=== PATIENT | female | born 1990 | race Caucasian/White ===

== ENCOUNTER → 2016-04-05 | Outpatient (CLI) | payer BC ==
[~2016-04-05] MED LIST: CLC100 PO; DROSPIRENONE PO; ETHINYL ESTRADIOL PO; FRRS300 PO; MTR600X PO; MYL80 PO; OXYC-57 PO; PHEN-876 PO; PRENTAB26 PO; SULF800T23 PO
[2016-04-05 17:35] LABS: HEMATOCRIT 31.9 % (37-47)
[2016-04-05 18:02] LABS: GTGD 50 Grams
[2016-04-05 18:54] LABS: URINE APPEARANCE CLOUDY (CLEAR); URINE BILIRUBIN NEG (NEG); URINE COLOR YELLOW; URINE EPITHELIAL CELL AUTO >30 /lpf (0-5); URINE NITRITE NEG (NEG); URINE SPECIFIC GRAVITY 1.022 (1.000-1.030); UROBILINOGEN NEG (NEG)
[2016-04-05 19:04] LABS: MANUAL MICROSCOPIC REQUIRED? NO; REVIEW REQ? YES
== END | disposition home or self-care (01) ==
LOC: C.LAB1850 16:06
PROVIDERS: ATTEND Obstetrics & Gynecology
DX: Z34.02 Encounter for supervision of normal first pregnancy, second trimester (principal)

== ENCOUNTER → 2016-06-04 | Outpatient (CLI) | payer BC | END | disposition home or self-care (01) | LOC: C.LABSPEC 16:20 | PROVIDERS: ATTEND Obstetrics & Gynecology | DX: Z34.03 Encounter for supervision of normal first pregnancy, third trimester (principal) ==

== ENCOUNTER 2016-06-27 00:14 | Inpatient (IN) | payer BC ==
[~2016-06-27] VITALS: Ht 160 cm; Wt 71.0 kg
[2016-07-02] MEDS ORDERED: PRENTAB26 PO (18:35)
[2016-07-03 07:52] VITALS: Ht 160 cm; Wt 71.0 kg
[2016-07-03] MEDS ORDERED: LACTATED RINGER'S 1000ML 500 ML IV PRN ×2 (08:10→11:01)
[2016-07-03] MEDS ORDERED: LACTATED RINGER'S 1000ML 1,000 ML IV PRN (08:10)
[2016-07-03] MEDS ORDERED: OXYTOCIN 30 UNITS/500ML NSS IV PRN (08:15)
[2016-07-03 08:44] LABS: HEMATOCRIT 32.7 % (37-47); MEAN CELL VOLUME 87.2 fL (80-100); MEAN CORPUSCULAR HEMOGLOBIN 28.3 pg (25-34); MEAN CORPUSCULAR HGB CONC 32.4 g/dl (32-36); MEAN PLATELET VOLUME 11.7 fL (7.4-10.4); PLATELET COUNT 233 K/uL (130-400); RED BLOOD COUNT 3.75 M/uL (4.2-5.4)
[2016-07-03] MEDS: LACTATED RINGER'S 1000ML 1,000 ML IV SCH ×3 (08:49→16:34)
[2016-07-03] MEDS ORDERED: NURSING VERBAL MED ORDER ONE (10:45)
[2016-07-03] MEDS: ACETAMINOPHEN 325 MG TAB PO PRN ×2 (10:54→16:49)
[2016-07-03] MEDS ORDERED: ACETAMINOPHEN 325 MG TAB PO PRN (11:00)
[2016-07-03] MEDS ORDERED: NALOXONE HCL INJ 1 MG in SODIUM CHLORIDE 0.9% 1000ML 1,000 ML IV PRN (11:01)
[2016-07-03] MEDS ORDERED: FENTANYL CITRATE INJ 50 MCG/1 ML 2 ML VIAL ONE ×2 (11:06→20:41)
[2016-07-03] MEDS ORDERED: BUPIVACAINE 0.25% 30 ML VIAL ONE (11:06)
[2016-07-03] MEDS ORDERED: FENTANYL 2MCG/ML ROPIV 1.25MG/ML 100ML BAG EPI ONE (11:06)
[2016-07-03] MEDS ORDERED: EpHEDrine SULFATE INJ 50 MG/ML AMP ONE (11:06)
[2016-07-03] MEDS ORDERED: ONDANSETRON INJ 2 MG/ML 2 ML VIAL IV PRN (11:15)
[2016-07-03] MEDS ORDERED: DiphenhydrAMINE HCL 50 MG/ML VIAL IV PRN (11:15)
[2016-07-03] MEDS ORDERED: NALBUPHINE HCL INJ 10 MG/ML AMP IV PRN (11:15)
[2016-07-03] MEDS ORDERED: FENTANYL 2MCG/ML ROPIV 1.25MG/ML 100ML BAG EPI PRN (11:15)
[2016-07-03] MEDS ORDERED: EpHEDrine SULFATE INJ 50 MG/ML AMP IV PRN (11:15)
[2016-07-03] MEDS ORDERED: NALOXONE HCL INJ 0.4 MG/1 ML VIAL/CARP IV PRN (11:15)
[2016-07-03] MEDS: FENTANYL 2MCG/ML ROPIV 1.25MG/ML 100ML BAG EPI PRN ×2 (16:53→18:57)
[2016-07-03] MEDS ORDERED: AMPICILLIN/SULBACTAM SOD INJ 3,000 MG in SODIUM CHLORIDE 0.9% 100ML 100 ML IV ONE (18:30)
[2016-07-03] MEDS ORDERED: LACTATED RINGER'S 1000ML 1,000 ML IV ONE (20:01)
[2016-07-03] MEDS ORDERED: LIDOCAINE/EPINEPHRINE 2% 1:200,000 20 ML SDV ONE ×2 (20:12→20:45)
[2016-07-03] MEDS ORDERED: OXYTOCIN INJ 10 UNITS/ML VIAL ONE (20:12)
[2016-07-03] MEDS ORDERED: CEFAZOLIN IV 2,000 MG in DEXTROSE 5% 50ML 50 ML IV SCH (20:15)
[2016-07-03] MEDS ORDERED: CITRIC ACID/SODIUM CITRATE 15 ML UDC PO ONE (20:15)
[2016-07-03] MEDS ORDERED: MoRPHine SULFATE PF 1 MG/ML 10 ML AMP/VIAL ONE (20:31)
[2016-07-03] MEDS ORDERED: MIDAZOLAM HCL 1 MG/ML 2ML VIAL ONE (20:42)
[2016-07-03] MEDS ORDERED: METHYLERGONOVINE MALEATE 0.2 MG/ML AMP ONE (20:45)
[2016-07-03] MEDS ORDERED: ONDANSETRON INJ 2 MG/ML 2 ML VIAL ONE (20:52)
[2016-07-03] MEDS ORDERED: CARBOPROST TROMETHAMINE 250 MCG/ML AMP ONE (20:52)
[2016-07-03] MEDS ORDERED: NO NARCOTICS OR SEDATIVES SCH (21:00)
[2016-07-03] MEDS ORDERED: MoRPHine SULFATE PF 1 MG/ML 10 ML AMP/VIAL EPI PRN (21:00)
[2016-07-03] MEDS ORDERED: CONTINUE MEDICATION ONE (21:00)
[2016-07-03] MEDS ORDERED: MoRPHine SULFATE 2 MG/ML CARP IV PRN (21:00)
[2016-07-03] MEDS ORDERED: DC INTRASPINAL MORPHINE PRN (21:00)
--- NOTE | 2016-07-03 21:05 | HISTORY & PHYSICAL EXAMINATION ---
DATE OF ADMISSION: 07/03/2016 PREOPERATIVE DIAGNOSIS: Failure to progress. HISTORY OF PRESENT ILLNESS: This is a 26-year-old G1, P0, who presented for an induction of labor at 40 weeks and 6/7. Induction progressed smoothly until the patient was in the second stage of labor. She pushed for 3 hours and unfortunately was unable to effect delivery of the head. Additionally, she experienced significant labial and vaginal edema. Exam showed the fetus to be in a persistently asynclitic and at least partially transverse presentation. So, the patient was unable to effect delivery of the head. On exam, I did not feel that the head was amenable to operative vaginal delivery as it was abnormally oriented and easily disengaged even after this long of pushing. The patient was counseled on the need for delivery which she accepts. She was counseled at the bedside on the risks and benefits, and she and her both gave consent to proceed. ALLERGIES: PSEUDOEPHEDRINE. MEDICATIONS: Prenatals. PAST MEDICAL HISTORY: Medullary sponge kidneys, history of umbilical hernia, migraines, varicella, and ovarian cysts. SURGICAL HISTORY: Ewing teeth, adenoidectomy. SOCIAL HISTORY: Negative x3. female. OBSTETRIC HISTORY: Primigravida. CURRENT EXAMINATION: VITAL SIGNS: 125/62, pulse of 84, pulse ox 96 on room air. GENERAL: The patient is in moderate distress due to contraction pain and pressure in the buttocks. HEART AND LUNGS: Normal. ABDOMEN: Gravid. CERVIX: The patient has fully dilated cervix and head of the infant had reached the introitus but is easily disengageable upward as previously mentioned. ASSESSMENT AND PLAN: A 26-year-old G1, P0, with failure to progress in the second stage of labor, who will be moved to the operating room now for a planned primary low transverse section.
[2016-07-03] MEDS ORDERED: LACTATED RINGER'S 1000ML 1,000 ML IV SCH (21:09)
--- NOTE | 2016-07-03 21:12 | [facility] Post Operative Brief Note ---
Immediate Operative Summary Operative Date Jul 03, 2016. Pre-Operative Diagnosis 1. IUP 2. Failure to progress Post-Operative Diagnosis Same Procedure(s) Performed Primary caesarean section Delivery of live male child at [address] Mohr Buttermaker Continuous Churn Surgeon(s) Jimmie CHAUHAN Estimated Blood Loss 700cc Findings normal tubes and ovaries. Uterine atony after delivery resolved with medication Specimens Placenta-exam Cordblood Complication(s) None Disposition L&D
[2016-07-03] MEDS ORDERED: DIPHTHERIA/TETANUS/PERTUSSIS 0.5 ML SYR/VIAL IM. ONE (21:15)
[2016-07-03] MEDS ORDERED: BENZOCAINE 20% AER SPR 82.5 GM CAN EXT PRN (21:15)
[2016-07-03] MEDS ORDERED: LANOLIN OINT EXT PRN ×2 (21:15)
[2016-07-03] MEDS ORDERED: HYDROCORTISONE ACETATE 25 MG SUPP PR PRN (21:15)
[2016-07-03] MEDS ORDERED: SUPERCREAM 0.870 % 15GM JAR EXT PRN (21:15)
[2016-07-03] MEDS ORDERED: OXYTOCIN INJ 30 UNITS in LACTATED RINGER'S 1000ML 1,000 ML IV SCH (21:30)
--- NOTE | 2016-07-03 21:37 | Anesthesiology Progress Note ---
Anesthesia Post Op Note Date & Time Jul 03, 2016 at 21:36 Vital Signs Pain Intensity: 1 Notes Mental Status: alert / awake / arousable, participated in evaluation Pt Amnestic to Procedure: Yes Nausea / Vomiting: adequately controlled Pain: adequately controlled Airway Patency, RR, SpO2: stable & adequate BP & HR: stable & adequate Hydration State: stable & adequate Neuraxial Anesthesia: was administered, sensory block is resolving Anesthetic Complications: no major complications apparent
[2016-07-03] MEDS: KETOROLAC TROMETHAMINE 30 MG/ML VIAL IV. PRN (22:46)
[2016-07-04] VITALS (18 sets, daily range): BP systolic 113–124; BP diastolic 72–83; PULSE 76–101; TEMP 36.6–37; O2SAT 89–98
[2016-07-04] MEDS: MEPERIDINE HCL 25 MG/ML CARP IV PRN ×3 (00:33→09:51)
[2016-07-04] MEDS: KETOROLAC TROMETHAMINE 30 MG/ML VIAL IV. PRN ×2 (04:24→12:46)
[2016-07-04 06:10] LABS: HEMATOCRIT 28.8 % (37-47)
[2016-07-04 06:31] LABS: BASO ABS # 0.01 K/uL (0-0.2); COMPLETE YES; HEMATOCRIT 27.8 % (37-47); IG% 0.3 %; LYMPH % 5.2 %; LYMPH ABS # 1.11 K/uL (1.2-3.4); MEAN CELL VOLUME 86.6 fL (80-100); MEAN CORPUSCULAR HEMOGLOBIN 28.3 pg (25-34); MEAN CORPUSCULAR HGB CONC 32.7 g/dl (32-36); MEAN PLATELET VOLUME 11.7 fL (7.4-10.4); MONO % 5.3 %; NEUT % 89.2 %; PLATELET COUNT 192 K/uL (130-400); RED BLOOD COUNT 3.21 M/uL (4.2-5.4); WHITE BLOOD COUNT 21.52 K/uL (4.8-10.8)
--- NOTE | 2016-07-04 07:07 | Progress Note ---
Subjective Jul 04, 2016. Subjective conversation w/ patient, physical exam Ambulation: limited ambulation (due to jordan) Passing Gas: Yes Diet Tolerance: Regular Diet Lochia: Small Feeding Type: Breast Feeding Pain: complains of pain, improves with meds Comment: Overnight while she was sleeping her O2 sat drop below 90. She was put on 1.5L NC. This morning she is doing well without O2 supplement. Review of Systems Constitutional: No fever Respiratory: No shortness of breath Cardiac: No chest pain Breast: No breast lump Abdomen: + nausea, + pain, No vomiting Female : No dysuria Denies headache Objective Vital Signs Date Time Temp Pulse Resp B/P Pulse Ox O2 Delivery O2 Flow Rate FiO2 07/04/16 06:00 18 96 07/04/16 05:00 16 97 07/04/16 04:00 36.7 101 16 124/79 07/04/16 04:00 18 98 07/04/16 03:00 17 97 07/04/16 02:00 17 96 07/04/16 01:00 17 89 07/04/16 00:00 20 95 07/04/16 00:00 36.6 76 20 122/83 96 Room Air 07/04/16 00:00 Room Air Physical Exam General Appearance: WELL-APPEARING, WD/WN, NO APPARENT DISTRESS Respiratory/Chest: chest non-tender, lungs clear, normal breath sounds Cardiovascular: regular rate, rhythm Abdomen: normal bowel sounds (hyperactive), soft, + distended, + tenderness Fundus: Firm, Relation to Umbilicus (about 1cm below, because of distension it was difficult to appreciate) Incision Description: Clean, Dry & Intact Extremities: non-tender, no calf tenderness, + pedal edema Laboratory Results Last 24 Hours Test 07/03/16 08:23 07/04/16 04:35 07/04/16 05:56 White Blood Count 11.90 K/uL 21.52 K/uL Red Blood Count 3.75 M/uL 3.21 M/uL Hemoglobin 10.6 g/dL 9.4 g/dL 9.1 g/dL Hematocrit 32.7 % 28.8 % 27.8 % Mean Corpuscular Volume 87.2 fL 86.6 fL Mean Corpuscular Hemoglobin 28.3 pg 28.3 pg Mean Corpuscular Hemoglobin Concent 32.4 g/dl 32.7 g/dl RDW Standard Deviation 43.8 fL 43.7 fL RDW Coefficient of Variation 13.8 % 13.9 % Platelet Count 233 K/uL 192 K/uL Mean Platelet Volume 11.7 fL 11.7 fL Neutrophils (%) (Auto) 89.2 % Lymphocytes (%) (Auto) 5.2 % Monocytes (%) (Auto) 5.3 % Eosinophils (%) (Auto) 0.0 % Basophils (%) (Auto) 0.0 % Neutrophils # (Auto) 19.19 K/uL Lymphocytes # (Auto) 1.11 K/uL Monocytes # (Auto) 1.14 K/uL Eosinophils # (Auto) 0.00 K/uL Basophils # (Auto) 0.01 K/uL Immature Granulocyte % (Auto) 0.3 % Immature Granulocyte # (Auto) 0.07 K/uL Nucleated RBC Absolute Count (auto) 0.03 K/uL Nucleated Red Blood Cells % 0.1 % Medications Current Inpatient Medications Medications (Trade) Dose Ordered Sig/Semaj Route Start Time Stop Time Status Last Admin Dose Admin Lactated Ringer's 1,000 ml @ 125 mls/hr Q8H IV 07/03/16 08:10 07/05/16 08:09 07/03/16 16:34 125 MLS/HR Lactated Ringer's (Lr 1000ml) 1,000 ml @ 999 mls/hr Q1H1M PRN IV 07/03/16 08:10 08/02/16 08:09 Oxytocin 30 units 30 units UD PRN IV 07/03/16 08:15 08/02/16 08:14 07/03/16 08:51 30 UNITS Lactated Ringer's (Lr 1000ml) 500 ml @ 999 mls/hr Q31M PRN IV 07/03/16 08:10 08/02/16 08:09 Acetaminophen (Tylenol Tab) 650 mg Q4H PRN PO 07/03/16 11:00 08/02/16 10:59 07/03/16 16:49 650 MG Naloxone HCl 0.1 mg 0.1 mg UD PRN IV 07/03/16 11:15 07/04/16 14:45 Lactated Ringer's (Lr 1000ml) 500 ml @ 999 mls/hr Q31M PRN IV 07/03/16 11:01 07/04/16 14:45 Ephedrine Sulfate (EpHEDrine SULFATE INJ) 10 mg Q5M PRN IV 07/03/16 11:15 07/04/16 14:45 Diphenhydramine HCl (Benadryl Inj) 25 mg Q6H PRN IV 07/03/16 11:15 07/04/16 14:45 Nalbuphine HCl 5 mg 5 mg Q10M PRN IV 07/03/16 11:15 07/04/16 14:45 Naloxone HCl/ Sodium Chloride (Narcan Inj/Nss 1000ml) 1,002.5 ml @ 50 mls/hr Q20H3M PRN IV 07/03/16 11:01 07/04/16 14:45 Ondansetron HCl (Zofran Inj) 4 mg Q6H PRN IV 07/03/16 11:15 07/04/16 14:45 07/03/16 21:33 4 MG Fentanyl/ Ropivacaine (Fentanyl 2MCG/ Ml/Ropivacaine 1.25MG/ML) 100 ml PRN PRN EPI 07/03/16 13:38 07/04/16 13:37 07/03/16 18:57 100 ML Ketorolac Tromethamine (Toradol Inj) 30 mg Q6H PRN IV. 07/03/16 21:00 07/04/16 14:45 07/04/16 04:24 30 MG Meperidine HCl (Demerol Inj) 25 mg Q15M PRN IV 07/03/16 21:00 07/04/16 14:45 07/04/16 00:33 25 MG Miscellaneous Information (Dc Intraspinal Morphine) 1 ea DIRECTED PRN N/A 07/03/16 21:00 07/04/16 14:45 Miscellaneous Information (No Narcotics Or Sedatives) 1 ea UD N/A 07/03/16 21:00 07/04/16 14:45 Morphine Sulfate (Duramorph Pf Inj) TODAY PRN EPI 07/03/16 21:00 07/04/16 14:45 Morphine Sulfate 2 mg 2 mg Q6H PRN IV 07/03/16 21:00 07/04/16 14:45 Lactated Ringer's (Lr 1000ml) 1,000 ml @ 125 mls/hr Q8H IV 07/03/16 21:09 5/26/17 21:08 07/04/16 06:16 125 MLS/HR Ketorolac Tromethamine (Toradol Inj) 30 mg Q6H PRN IV. 07/04/16 14:45 07/09/16 14:44 Meperidine HCl (Demerol Inj) 50 mg Q4H PRN IV 07/04/16 14:45 07/18/16 14:44 Meperidine HCl (Demerol Inj) 75 mg Q4H PRN IV 07/04/16 14:45 07/18/16 14:44 Oxycodone/ Acetaminophen (Percocet 5-325mg Tab) 1 tab Q4H PRN PO 07/04/16 14:45 07/18/16 14:44 Oxycodone/ Acetaminophen (Percocet 5-325mg Tab) 2 tab Q4H PRN PO 07/04/16 14:45 07/18/16 14:44 Ibuprofen 600 mg 600 mg Q4H PRN PO 07/03/16 21:15 08/02/16 21:14 Promethazine HCl/ Sodium Chloride (Phenergan Inj/ Nss 50ml) 51 ml @ 204 mls/hr Q4H PRN IV 07/04/16 14:45 08/03/16 14:44 Ondansetron HCl (Zofran Inj) 4 mg Q4H PRN IV 07/04/16 14:45 08/03/16 14:44 Prenat Multivit/ Pegger Dobby Looms/Iron/Folic Ac ( Vitamin Tab) 1 tab DAILY PO 07/04/16 08:00 08/03/16 07:59 Docusate Sodium (coLACE CAP) 100 mg BID PO 07/04/16 08:00 08/03/16 07:59 Cocaine HCl (Supercream 0.870% Cr) BID PRN EXT 07/03/16 21:15 07/17/16 21:14 Lanolin (Lanolin Oint) PRN PRN EXT 07/03/16 21:15 08/02/16 21:14 Hydrocortisone Acetate (Anusol Hc Supp) 25 mg BID PRN [place] 07/03/16 21:15 08/02/16 21:14 Benzocaine (Dermoplast Aero Spr) 1 appln PRN PRN EXT 07/03/16 21:15 08/02/16 21:14 Simethicone (Mylicon Chew Tab) 80 mg QID PO 07/04/16 08:00 08/03/16 08:59 Diphenhydramine HCl (Benadryl Cap) 25 mg QID PRN PO 07/04/16 14:45 08/03/16 14:44 Diphenhydramine HCl (Benadryl Inj) 25 mg QID PRN IV 07/04/16 14:45 08/03/16 14:44 Assessment and Plan Post-Op Day#: 1 Continue Routine Care: A/P: This is a 26 y/o female, , s/p . Limited ambulation due to jordan, H &H is stable. Plan: - Vitals signs are reviewed and WNL (Tmax 36.7 ) - This morning H&H is 9.1 & 27.8 - Blood type O+, GBS neg, Rubella Immune - Routine care - Encourage ambulation, monitor and control pain with medication as needed , continue with regular diet as tolerated and monitor lochia - Stool softeners and sitz bath recommended - Encourage breast feeding and educate about breast feeding Resident Physician Supervision Note: I interviewed and examined the patient. Discussed with Dr. Sorto and agree with findings and plan as documented in the note. Any exceptions or clarifications are listed here: The patient's abdomen is mildly distended but soft, and palpable "bubbling" occurs when a hand is rested on her abdomen. Bowel sounds are present and normally active. She is tender with pressing on the upper OR lower abdomen, bilaterally. H&H done overnight was still at the expected post- op level. I suspect she has a lot of bowel gas that is making her uncomfortable and will pass when she can ambulate. Dr. Patrick has been made aware and we will recheck H&H in another 12 hours to ensure the distention is not hiding a retroperitoneal or pelvic bleed, instead of just bowel gas. Documented By: Mari Mohr
[2016-07-04] MEDS: PRENATAL VITAMIN TAB PO SCH (09:33)
[2016-07-04] MEDS: DOCUSATE SODIUM 100 MG CAP PO SCH ×2 (09:33→20:41)
[2016-07-04] MEDS: SIMETHICONE 80 MG CHEW PO SCH ×4 (09:34→20:40)
[2016-07-04] MEDS ORDERED: ONDANSETRON INJ 2 MG/ML 2 ML VIAL IV PRN (14:45)
[2016-07-04] MEDS ORDERED: MEPERIDINE HCL 75 MG/ML CARP IV PRN (14:45)
[2016-07-04] MEDS ORDERED: DiphenhydrAMINE HCL 50 MG/ML VIAL IV PRN (14:45)
[2016-07-04] MEDS ORDERED: KETOROLAC TROMETHAMINE 30 MG/ML VIAL IV. PRN (14:45)
[2016-07-04] MEDS ORDERED: PROMETHAZINE HCL INJ 25 MG in SODIUM CHLORIDE 0.9% 50ML 50 ML IV PRN (14:45)
[2016-07-04] MEDS ORDERED: MEPERIDINE HCL 50 MG/ML CARP IV PRN (14:45)
[2016-07-04] MEDS: OXYCODONE/ACETAMINOPHEN 5-325 TAB PO PRN ×2 (16:00→20:42)
[2016-07-04] MEDS: IBUPROFEN 600 MG TAB PO PRN ×2 (16:00→20:41)
[2016-07-04 16:14] LABS: HEMATOCRIT 25.8 % (37-47); MEAN CELL VOLUME 86.6 fL (80-100); MEAN CORPUSCULAR HEMOGLOBIN 28.5 pg (25-34); MEAN CORPUSCULAR HGB CONC 32.9 g/dl (32-36); MEAN PLATELET VOLUME 10.6 fL (7.4-10.4); PLATELET COUNT 182 K/uL (130-400); RED BLOOD COUNT 2.98 M/uL (4.2-5.4)
--- NOTE | 2016-07-04 16:35 | Progress Note ---
Progress Note Date of Service Jul 04, 2016. Progress Note Patient is very concerned about her belly and she notes she is quite painful. notes no n/v. Her jordan has been removed. she notes she has had a couple of little passes of gas. she is tearful. afvss, not tachy, bp stable abd--distended, tympanic to percussion, unable to palpate uterus secondary to patient discomfort, very soft a/p--pod#0, likely having significant bowel gas and distention. I discussed the patient with her nurse, she notes that her belly is not more distended vs this am. We continue to treat her pain, she does get relief, and did take a nap today. Her hgb is down to 8.5 from 9.1 this am. do not think that she is having active bleeding as vitals are stable, the change in the hgb is likely consistent with blood loss with c/s (documented at 700cc , but uterine atony noted at the time of surgery). Reassured patient. will repeat cbc in the am with diff. Will continue to monitor closely.
[2016-07-05 00:15] VITALS: BP 112/67; PULSE 87; TEMP 36.9
[2016-07-05] MEDS: OXYCODONE/ACETAMINOPHEN 5-325 TAB PO PRN ×6 (00:29→23:43)
[2016-07-05] MEDS: IBUPROFEN 600 MG TAB PO PRN ×5 (00:29→23:42)
--- NOTE | 2016-07-05 06:28 | Progress Note ---
Subjective Jul 05, 2016. Subjective conversation w/ patient, physical exam, lab review Ambulation: limited ambulation Voiding: no voiding problems Passing Gas: Yes Diet Tolerance: Regular Diet Lochia: Small Feeding Type: Breast Feeding Comment: Patient feeling a little bit better this am, but still having discomfort. She notes her bloating is a bit better. Notes no n/v. +gas. Objective Vital Signs Date Time Temp Pulse Resp B/P Pulse Ox O2 Delivery O2 Flow Rate FiO2 07/05/16 00:15 36.9 87 18 112/67 07/05/16 00:15 Room Air 07/04/16 20:15 36.6 90 16 113/73 07/04/16 15:20 37.0 99 18 121/78 07/04/16 15:20 94 Room Air 07/04/16 15:00 20 94 07/04/16 14:00 96 07/04/16 13:00 16 95 07/04/16 12:53 37.0 96 20 114/75 07/04/16 12:00 16 94 07/04/16 11:00 20 95 07/04/16 10:00 16 95 07/04/16 09:00 20 97 07/04/16 09:00 36.8 101 20 114/72 07/04/16 08:00 20 94 07/04/16 07:00 20 95 Physical Exam General Appearance: WELL-APPEARING, WD/WN, NO APPARENT DISTRESS Respiratory/Chest: lungs clear, normal breath sounds Cardiovascular: regular rate, rhythm Abdomen: + abnormal bowel sounds (still tinkley, hypo), + distended (less so this am than last night.), + tenderness Fundus: Tender (unable to palpate the uterus secondary to patient discomfort, however, cannot appreciate above the umbilicus) Incision Description: Clean, Dry & Intact Extremities: non-tender, normal inspection, no pedal edema Laboratory Results Last 24 Hours Test 07/04/16 16:06 07/05/16 04:44 White Blood Count 18.50 K/uL Red Blood Count 2.98 M/uL Hemoglobin 8.5 g/dL Hematocrit 25.8 % Mean Corpuscular Volume 86.6 fL Mean Corpuscular Hemoglobin 28.5 pg Mean Corpuscular Hemoglobin Concent 32.9 g/dl RDW Standard Deviation 43.7 fL RDW Coefficient of Variation 14.0 % Platelet Count 182 K/uL Mean Platelet Volume 10.6 fL Assessment and Plan Post-Op Day#: 2 Continue Routine Care: Doing better today. Much less distension, still tympany to percussion so bowel gas. Vitals are stable. Continue routine postop care. Encourage ambulation. Will try again to breast feed today, did not do well yesterday as was feeling poorly and painful.
[2016-07-05] MEDS ORDERED: BISACODYL 10 MG SUPP PR PRN (06:30)
[2016-07-05 07:05] LABS: BASO % 0.1 %; BASO ABS # 0.02 K/uL (0-0.2); EOS % 1.1 %; HEMATOCRIT 25.8 % (37-47); IG% 0.5 %; LYMPH % 11.2 %; LYMPH ABS # 1.57 K/uL (1.2-3.4); MEAN CELL VOLUME 87.8 fL (80-100); MEAN CORPUSCULAR HEMOGLOBIN 28.2 pg (25-34); MEAN CORPUSCULAR HGB CONC 32.2 g/dl (32-36); MEAN PLATELET VOLUME 11.3 fL (7.4-10.4); MONO % 5.9 %; NEUT % 81.2 %; PLATELET COUNT 193 K/uL (130-400); RED BLOOD COUNT 2.94 M/uL (4.2-5.4); WHITE BLOOD COUNT 14.02 K/uL (4.8-10.8)
[2016-07-05 07:46] LABS: COMPLETE YES; LARGE PLATELETS 1+
[2016-07-05 09:15] VITALS: BP 116/78; PULSE 90; TEMP 36.5; O2SAT 98
[2016-07-05] MEDS: SIMETHICONE 80 MG CHEW PO SCH ×4 (09:17→19:30)
[2016-07-05] MEDS: DOCUSATE SODIUM 100 MG CAP PO SCH ×2 (09:17→19:30)
[2016-07-05] MEDS: PRENATAL VITAMIN TAB PO SCH (09:17)
[2016-07-05 11:44] VITALS: BP 102/68; PULSE 67; TEMP 36.6
[2016-07-05 16:00] VITALS: BP 115/71; PULSE 89; TEMP 36.7
[2016-07-05 19:31] VITALS: BP 125/82; PULSE 95; TEMP 36.6; O2SAT 98
[2016-07-05 22:55] VITALS: BP 118/77; PULSE 78; TEMP 36.6; O2SAT 98
--- NOTE | 2016-07-06 07:24 | Progress Note ---
Subjective Jul 06, 2016. Subjective conversation w/ patient, physical exam, lab review Ambulation: limited ambulation Voiding: no voiding problems Passing Gas: Yes Diet Tolerance: Regular Diet Lochia: Moderate Feeding Type: Bottle Feeding Pain: improving with meds Comment: Patient was seen at the bedside. No acute event overnight. Review of Systems Constitutional: No fever Respiratory: No shortness of breath Cardiac: No chest pain Breast: No breast lump Abdomen: No nausea, No pain, No vomiting Female : No dysuria Denies headache Objective Vital Signs Date Time Temp Pulse Resp B/P Pulse Ox O2 Delivery O2 Flow Rate FiO2 07/05/16 22:55 36.6 78 16 118/77 98 Room Air 07/05/16 22:55 Room Air 07/05/16 19:31 Room Air 07/05/16 19:31 36.6 95 16 125/82 98 Room Air 07/05/16 16:15 Room Air 07/05/16 16:00 36.7 89 18 115/71 Room Air 07/05/16 11:44 36.6 67 16 102/68 07/05/16 09:15 98 Room Air 07/05/16 09:15 36.5 90 14 116/78 Physical Exam General Appearance: WELL-APPEARING, WD/WN, NO APPARENT DISTRESS Respiratory/Chest: chest non-tender, lungs clear, normal breath sounds, no respiratory distress Cardiovascular: regular rate, rhythm Abdomen: soft, + distended (improving ), + tenderness Fundus: Firm, Relation to Umbilicus (it's difficult to examine since patient complains of pain, about 1cm below ) Incision Description: Clean, Dry & Intact Extremities: non-tender, no calf tenderness, + pedal edema (ankle edema) Medications Current Inpatient Medications Medications (Trade) Dose Ordered Sig/Semaj Route Start Time Stop Time Status Last Admin Dose Admin Lactated Ringer's (Lr 1000ml) 1,000 ml @ 999 mls/hr Q1H1M PRN IV 07/03/16 08:10 08/02/16 08:09 Oxytocin 30 units 30 units UD PRN IV 07/03/16 08:15 08/02/16 08:14 07/03/16 08:51 30 UNITS Lactated Ringer's (Lr 1000ml) 500 ml @ 999 mls/hr Q31M PRN IV 07/03/16 08:10 08/02/16 08:09 Acetaminophen 650 mg 650 mg Q4H PRN PO 07/03/16 11:00 08/02/16 10:59 07/03/16 16:49 650 MG Lactated Ringer's (Lr 1000ml) 1,000 ml @ 125 mls/hr Q8H IV 07/03/16 21:09 08/02/16 21:08 07/04/16 06:16 125 MLS/HR Ketorolac Tromethamine (Toradol Inj) 30 mg Q6H PRN IV. 07/04/16 14:45 07/09/16 14:44 Meperidine HCl (Demerol Inj) 50 mg Q4H PRN IV 07/04/16 14:45 07/18/16 14:44 Meperidine HCl (Demerol Inj) 75 mg Q4H PRN IV 07/04/16 14:45 07/18/16 14:44 Oxycodone/ Acetaminophen (Percocet 5-325mg Tab) 1 tab Q4H PRN PO 07/04/16 14:45 07/18/16 14:44 07/05/16 23:43 1 TAB Oxycodone/ Acetaminophen (Percocet 5-325mg Tab) 2 tab Q4H PRN PO 07/04/16 14:45 07/18/16 14:44 07/05/16 06:21 2 TAB Ibuprofen 600 mg 600 mg Q4H PRN PO 07/03/16 21:15 08/02/16 21:14 07/05/16 23:42 600 MG Promethazine HCl/ Sodium Chloride (Phenergan Inj/ Nss 50ml) 51 ml @ 204 mls/hr Q4H PRN IV 07/04/16 14:45 08/03/16 14:44 Ondansetron HCl (Zofran Inj) 4 mg Q4H PRN IV 07/04/16 14:45 08/03/16 14:44 Prenat Multivit/ Order Takers Supervisor/Iron/Folic Ac ( Vitamin Tab) 1 tab DAILY PO 07/04/16 08:00 08/03/16 07:59 07/05/16 09:17 1 TAB Docusate Sodium (coLACE CAP) 100 mg BID PO 07/04/16 08:00 08/03/16 07:59 07/05/16 19:30 100 MG Cocaine HCl (Supercream 0.870% Cr) BID PRN EXT 07/03/16 21:15 07/17/16 21:14 Lanolin (Lanolin Oint) PRN PRN EXT 07/03/16 21:15 08/02/16 21:14 Hydrocortisone Acetate (Anusol Hc Supp) 25 mg BID PRN [place] 07/03/16 21:15 08/02/16 21:14 Benzocaine (Dermoplast Aero Spr) 1 appln PRN PRN EXT 07/03/16 21:15 08/02/16 21:14 Simethicone (Mylicon Chew Tab) 80 mg QID PO 07/04/16 08:00 08/03/16 08:59 07/05/16 19:30 80 MG Diphenhydramine HCl (Benadryl Cap) 25 mg QID PRN PO 07/04/16 14:45 08/03/16 14:44 Diphenhydramine HCl (Benadryl Inj) 25 mg QID PRN IV 07/04/16 14:45 08/03/16 14:44 Bisacodyl (Dulcolax Supp) 10 mg TID PRN [place] 07/05/16 06:30 08/04/16 06:29 07/05/16 09:17 10 MG Assessment and Plan Post-Op Day#: 3 Continue Routine Care: A/P: This is a 26 y/o female, , s/p . Limited ambulation. Patient states she is trying to ambulate. Abdomen is less distended but still have gas. She is clinically stable otherwise. Last H&H is 25.8 & 8.3. Patient desires to stay one more day. Continue to encourage ambulation. Plan: - Vitals signs are reviewed and WNL (Tmax 36.7 ) - Last Hgb is 8.3 - Blood type O+, GBS neg, Rubella Immune - Routine care - Encourage ambulation, monitor and control pain with medication as needed , continue with regular diet as tolerated and monitor lochia - Stool softeners and sitz bath recommended Resident Physician Supervision Note: I interviewed and examined the patient. Discussed with Dr. Sorto and agree with findings and plan as documented in the note. Any exceptions or clarifications are listed here: [None] Documented By: Keaton Livingston
[2016-07-06 07:30] VITALS: BP 121/84; PULSE 69; TEMP 36.7
[2016-07-06] MEDS: PRENATAL VITAMIN TAB PO SCH (08:19)
[2016-07-06] MEDS: DOCUSATE SODIUM 100 MG CAP PO SCH ×2 (08:19→19:46)
[2016-07-06] MEDS: SIMETHICONE 80 MG CHEW PO SCH ×4 (08:19→19:46)
[2016-07-06] MEDS: IBUPROFEN 600 MG TAB PO PRN ×4 (08:20→21:56)
[2016-07-06] MEDS: OXYCODONE/ACETAMINOPHEN 5-325 TAB PO PRN ×3 (08:21→17:53)
[2016-07-06 15:50] VITALS: BP 134/81; PULSE 72; TEMP 36.7; O2SAT 99
[2016-07-06 23:45] VITALS: BP 126/70; PULSE 76; TEMP 36.4; O2SAT 97
[2016-07-07] MEDS: OXYCODONE/ACETAMINOPHEN 5-325 TAB PO PRN ×2 (04:31→09:26)
[2016-07-07] MEDS: IBUPROFEN 600 MG TAB PO PRN ×2 (04:31→09:26)
[2016-07-07 07:20] VITALS: BP 134/86; PULSE 65; TEMP 36.6
[2016-07-07] MEDS: PRENATAL VITAMIN TAB PO SCH (08:16)
[2016-07-07] MEDS: DOCUSATE SODIUM 100 MG CAP PO SCH (08:16)
[2016-07-07] MEDS: SIMETHICONE 80 MG CHEW PO SCH (08:16)
--- NOTE | 2016-07-07 09:17 | Progress Note ---
Subjective Jul 07, 2016. Subjective conversation w/ patient, physical exam Voiding: no voiding problems Passing Gas: Yes Diet Tolerance: Regular Diet Lochia: Small Feeding Type: Breast Feeding Pain: well controlled on oral pain meds. Review of Systems Constitutional: No chills, No fatigue, No fever, No problem reported, No sweats , No weakness, No weight loss Breast: No breast lump, No breast pain, No change in shape, No nipple discharge , No problem reported, No see HPI Abdomen: No GI bleeding, No constipation, No diarrhea, No nausea, No pain, No problem reported, No vomiting Female : No abnormal vaginal bleeding, No dysuria, No hematuria, No incontinence, No problem reported, No see HPI, No urinary frequency, No vaginal discharge Objective Vital Signs Date Time Temp Pulse Resp B/P Pulse Ox O2 Delivery O2 Flow Rate FiO2 07/07/16 07:40 Room Air 07/07/16 07:20 36.6 65 18 134/86 Room Air 07/06/16 23:45 36.4 76 18 126/70 97 Room Air 07/06/16 23:45 97 Room Air 07/06/16 15:50 36.7 72 18 134/81 99 Room Air 07/06/16 15:50 99 Room Air Physical Exam General Appearance: WELL-APPEARING, NO APPARENT DISTRESS Abdomen: soft Fundus: Firm, Non-Tender, Relation to Umbilicus Incision Description: Clean, Dry & Intact Extremities: no calf tenderness Assessment and Plan Post-Op Day#: 4 Continue Routine Care: ACTIVITY RECOMMENDATIONS: * Gradual return to full activity over the next 2-3 weeks. * No lifting - nothing heavier than baby over the next 2-3 weeks. * Do not engage in vigorous exercise, sexual activity or sports until cleared by your physician. * Do not drive or operate any motorized equipment until cleared by your physician. * You may shower/bathe daily. MEDICATIONS: For discomfort or pain, you may use Acetaminophen (Tylenol), Ibuprofen (Advil), or Naproxen (Aleve) following the package directions. For constipation you may use Colace following the package directions. BREAST CARE: If you are not breast feeding: * Wear a supportive bra 24 hours a day for one to two weeks. * Avoid stimulating your breasts and nipples as much as possible during the first few weeks after delivery. * When taking a shower, have the warm water hit your back, not breasts. * When your breasts feel full, apply ice packs. Usually three to four times a day helps ease the discomfort. * Take a mild pain medication (Tylenol / Motrin) when you are uncomfortable. If breast feeding: * Use breast milk to lubricate nipples. Lansinoh cream may be used for sore nipples. You do not need to remove cream prior to breast feeding. If using a different brand of cream, check the label for directions regarding removal of cream prior to nursing. * Wear a supportive bra. * If having problems with breasts or breast feeding, call a technical consultant or your health care provider. SPECIAL CARE INSTRUCTIONS: When you are discharged from the hospital, it is important for you to follow the instructions listed below: * During the first week at home, you should be able to care for yourself and your baby. In addition, the usual light household activities are encouraged. * Limit your activities to the way you feel. Do not try to clean the house or move furniture. Be sensible. * If you actively engage in sports and have done so up until the time of your delivery, you may resume these activities as soon as you feel able. This may take up to one month or even longer. Use good judgment. * Continue to take your vitamins for at least six weeks after the of your baby. * Your diet need not be limited unless you were on a special diet before your delivery. Breast-feeding mothers need around 2500 calories per day and at least 64-80 ounces of fluid per day (8 to 10 glasses). * You should eat foods from the four major food groups. Crash diets or fad diets are to be avoided. Eating lean meats, fresh fruits and vegetables, low-fat dairy products, high fiber foods and a regular exercise program, will help you get back to your pre- weight without putting your health at risk. * Constipation is sometimes a problem after delivery. Take a mild laxative as needed. If breast feeding, Milk of Magnesia is acceptable to use. You may use a suppository or Fleets enema. * A daily shower or tub bath is suggested. Wash incision daily with warm soapy water and pat dry. It doesn't need to be covered unless drainage is present. * A bloody vaginal discharge will usually continue until around four weeks . A small amount of bleeding may continue for as long as six weeks. Vaginal discharge changes from the bright red bleeding after delivery to pink then brownish and finally yellowish-pink before becoming white and disappearing. * Bleeding may increase with activity. Your first period may come in 4-8 weeks. If you are breast feeding, your period may be delayed even longer. * [place] (sex) can begin whenever both you and your partner feel comfortable and do not have any form of genital infection. It is recommended that you wait at least six weeks for internal and external healing to occur. If you have questions, please talk to your health care practitioner. A condom should be used to prevent infection and . * Foreplay, gentle intercourse and lubrication is very important the first several times to prevent pain. A water-based lubricant such as K-Y jelly or Astroglide may be used. * If you have RH negative blood and your baby is RH positive, you will receive RHOGAM by injection prior to discharge. The nurse will give you a card to keep with you that has the date and place that you received RHOGAM after delivery. * During your care, you had a Rubella screen done to check for the presence of rubella antibodies in your blood. If your test was negative, you will receive a Rubella vaccine prior to discharge. This vaccine may cause a fever, soreness at the injection site and flu-like symptoms. If these symptoms persist, notify your health care practitioner. is not advised for one month after a Rubella vaccine. * Verbalizes understanding of car seat law as reviewed with patient nursing. * Car Seat hand-out given and reviewed with patient by nursing. * Shaken baby information reviewed with patient by nursing. Call you doctor if: * Heavy bleeding (saturating several pads an hour) or passing clots the size of your fist. * A fever >101 degrees F (38.3 degrees C) on two occasions four hours apart and /or chills. * Unusual pain in the pelvic or vaginal areas. * Call the doctor for any increased redness, drainage or swelling around the incision and any pain unrelieved by prescribed pain medication. * "Baby Blues" lasting longer than two weeks. If you have any questions or concerns, call your health care practitioner at . FOLLOW UP VISIT: * Please call the office at to schedule a 6 week examination. It is important you keep this appointment. It is important for you to make arrangements for either yearly or twice yearly check-ups thereafter.
[2016-07-07] MEDS ORDERED: MYL80 PO (09:36)
[2016-07-07] MEDS ORDERED: FRRS300 PO (09:36)
[2016-07-07] MEDS ORDERED: MTR600X PO (09:36)
[2016-07-07] MEDS ORDERED: CLC100 PO (09:36)
[2016-07-07] MEDS ORDERED: OXYC-57 PO (09:36)
--- NOTE | 2016-07-07 09:49 | Discharge Instructions ---
Discharge Instructions Date of Service Jul 07, 2016. Admission Reason for Admission: IUP Discharge Discharge Diagnosis / Problem: recovery from Discharge Goals Goal(s): Routine recovery after Activity Recommendations Activity Limitations: per Instructions/Follow-up section . Instructions / Follow-Up Instructions / Follow-Up ACTIVITY RECOMMENDATIONS: * Gradual return to full activity over the next 2-3 weeks. * No lifting - nothing heavier than baby over the next 2-3 weeks. * Do not engage in vigorous exercise, sexual activity or sports until cleared by your physician. * Do not drive or operate any motorized equipment until cleared by your physician. * You may shower/bathe daily. MEDICATIONS: For discomfort or pain, you may use Acetaminophen (Tylenol), Ibuprofen (Advil), or Naproxen (Aleve) following the package directions. For constipation you may use Colace following the package directions. BREAST CARE: If you are not breast feeding: * Wear a supportive bra 24 hours a day for one to two weeks. * Avoid stimulating your breasts and nipples as much as possible during the first few weeks after delivery. * When taking a shower, have the warm water hit your back, not breasts. * When your breasts feel full, apply ice packs. Usually three to four times a day helps ease the discomfort. * Take a mild pain medication (Tylenol / Motrin) when you are uncomfortable. If breast feeding: * Use breast milk to lubricate nipples. Lansinoh cream may be used for sore nipples. You do not need to remove cream prior to breast feeding. If using a different brand of cream, check the label for directions regarding removal of cream prior to nursing. * Wear a supportive bra. * If having problems with breasts or breast feeding, call a siebel consultant or your health care provider. SPECIAL CARE INSTRUCTIONS: When you are discharged from the hospital, it is important for you to follow the instructions listed below: * During the first week at home, you should be able to care for yourself and your baby. In addition, the usual light household activities are encouraged. * Limit your activities to the way you feel. Do not try to clean the house or move furniture. Be sensible. * If you actively engage in sports and have done so up until the time of your delivery, you may resume these activities as soon as you feel able. This may take up to one month or even longer. Use good judgment. * Continue to take your vitamins for at least six weeks after the of your baby. * Your diet need not be limited unless you were on a special diet before your delivery. Breast-feeding mothers need around 2500 calories per day and at least 64-80 ounces of fluid per day (8 to 10 glasses). * You should eat foods from the four major food groups. Crash diets or fad diets are to be avoided. Eating lean meats, fresh fruits and vegetables, low-fat dairy products, high fiber foods and a regular exercise program, will help you get back to your pre- weight without putting your health at risk. * Constipation is sometimes a problem after delivery. Take a mild laxative as needed. If breast feeding, Milk of Magnesia is acceptable to use. You may use a suppository or Fleets enema. * A daily shower or tub bath is suggested. Wash incision daily with warm soapy water and pat dry. It doesn't need to be covered unless drainage is present. * A bloody vaginal discharge will usually continue until around four weeks . A small amount of bleeding may continue for as long as six weeks. Vaginal discharge changes from the bright red bleeding after delivery to pink then brownish and finally yellowish-pink before becoming white and disappearing. * Bleeding may increase with activity. Your first period may come in 4-8 weeks. If you are breast feeding, your period may be delayed even longer. * [place] (sex) can begin whenever both you and your partner feel comfortable and do not have any form of genital infection. It is recommended that you wait at least six weeks for internal and external healing to occur. If you have questions, please talk to your health care practitioner. A condom should be used to prevent infection and . * Foreplay, gentle intercourse and lubrication is very important the first several times to prevent pain. A water-based lubricant such as K-Y jelly or Astroglide may be used. * If you have RH negative blood and your baby is RH positive, you will receive RHOGAM by injection prior to discharge. The nurse will give you a card to keep with you that has the date and place that you received RHOGAM after delivery. * During your care, you had a Rubella screen done to check for the presence of rubella antibodies in your blood. If your test was negative, you will receive a Rubella vaccine prior to discharge. This vaccine may cause a fever, soreness at the injection site and flu-like symptoms. If these symptoms persist, notify your health care practitioner. is not advised for one month after a Rubella vaccine. * Verbalizes understanding of car seat law as reviewed with patient nursing. * Car Seat hand-out given and reviewed with patient by nursing. * Shaken baby information reviewed with patient by nursing. Call you doctor if: * Heavy bleeding (saturating several pads an hour) or passing clots the size of your fist. * A fever >101 degrees F (38.3 degrees C) on two occasions four hours apart and /or chills. * Unusual pain in the pelvic or vaginal areas. * Call the doctor for any increased redness, drainage or swelling around the incision and any pain unrelieved by prescribed pain medication. * "Baby Blues" lasting longer than two weeks. If you have any questions or concerns, call your health care practitioner at . FOLLOW UP VISIT: * Please call the office at to schedule a 6 week examination. It is important you keep this appointment. It is important for you to make arrangements for either yearly or twice yearly check-ups thereafter. Current Hospital Diet Patient's current hospital diet: Regular OB Diet Discharge Diet Recommended Diet: Regular OB Diet Procedures Procedures Performed: Primary caesarean section Delivery of live male child at 2039 Pending Studies Studies pending at discharge: no Medical Emergencies . Who to Call and When: Medical Emergencies: If at any time you feel your situation is an emergency, please call 911 immediately. . Non-Emergent Contact Non-Emergency issues call your: Food Safety Scientist . . "Provider Documentation" section prepared by Tigist Zuluaga. . VTE Core Measure Inpt VTE Proph given/why not?: Treatment not indicated
[2016-07-07 10:26] VITALS: BP_DIAS 86; PULSE 65; TEMP 36.6
[2016-07-08] MEDS ORDERED: FERROUS SULFATE 325 MG TAB PO SCH (08:00)
--- NOTE | 2016-07-12 14:05 | DISCHARGE SUMMARY ---
COURSE OF CARE: Viola is a 26-year-old who was admitted and underwent a primary section for failure to progress. Her surgery was uncomplicated. Her postop course was notable for a hemoglobin that nadired at 8.3 from a preop of 9.4. Laurie's vital signs remained within normal limits and stable throughout the course of her postop recovery. She was discharged to home on the morning of Friday the with medications to include 30 tablets of Percocet as well as docusate and simethicone and instructions to follow up in the usual 6-week interval.
--- NOTE | 2016-07-12 14:25 | OPERATIVE REPORT ---
DATE OF OPERATION: 07/03/2016 PREOPERATIVE DIAGNOSES: [place] intrauterine with failure to progress. POSTOPERATIVE DIAGNOSIS: Same. PROCEDURE: Primary low transverse section. SURGEON: Dr. Mohr. MOLD FILLER AND DRAINER: RN. ESTIMATED BLOOD LOSS: 700 mL. FINDINGS: Normal tubes and ovaries. Uterine atony after delivery, which was resolved with the use of medications. SPECIMENS: Placenta for exam and cord blood. COMPLICATIONS: None. DISPOSITION: Stable to labor and delivery. DESCRIPTION: Laurie was brought to the operating room, placed on the table with the supine position in a leftward tilt and prepped and draped in standard sterile fashion and a hard time-out was taken prior to proceeding. A Pfannenstiel incision was created and carried down sharply to the fascia which was incised. The fascia was elevated and sharply and bluntly dissected off the underlying rectus which were naturally in the midline. The peritoneum was entered bluntly. Bladder flap was created and then after the bladder blade was placed the lower uterine transverse incision was made, final entry to the uterus was made in a blunt manner. The head was elevated to the hysterotomy and using mild fundal pressure the infant was delivered. The cord was doubly clamped and cut and the infant was taken to the warmer. The placenta was manually extracted. The uterus was exteriorized and it was closed in 2 layers using 0 Vicryl suture in a running locked and then an imbricating layer. Uterus, tubes, and ovaries appeared to be grossly normal. The gutters were cleared of clot and debris and the uterus was gently reapproximated. Final exam of the hysterotomy revealed good hemostasis. The rectus were allowed to reapproximate naturally and the fascia was closed in a running nonlocked manner using #1 Vicryl suture at the completion of which the fascia was examined and found to be free of any defect. Subcutaneous tissue was copiously irrigated and the skin was then closed with 4-0 Monocryl, a Dermabond dressing was applied and the patient was transferred to recovery room in stable condition. I attest to the content of the Intraoperative Record and any orders documented therein. Any exceptio ns are noted below.
== END 2016-07-07 10:44 | disposition home or self-care (01) | DRG 765 ==
LOC: C.LD 07-03 07:43 → C.OBG 07-03 23:34
PROVIDERS: ADMIT Obstetrics & Gynecology; ATTEND Obstetrics & Gynecology
PROC: 10D00Z1 Extraction of Products of Conception, Low, Open Approach (ICD-10-PCS; principal; 2016-07-03 20:23)
DX: O48.0 Post-term pregnancy (principal); O26.833 Pregnancy related renal disease, third trimester; Q61.5 Medullary cystic kidney; O62.2 Other uterine inertia; O64.8XX0 Obstructed labor due to other malposition and malpresentation, not applicable or unspecified; O75.89 Other specified complications of labor and delivery; N90.89 Other specified noninflammatory disorders of vulva and perineum; O99.63 Diseases of the digestive system complicating the puerperium; R14.0 Abdominal distension (gaseous); O99.53 Diseases of the respiratory system complicating the puerperium; R09.02 Hypoxemia; Z37.0 Single live birth; Z3A.40 40 weeks gestation of pregnancy

== ENCOUNTER 2016-07-02 18:09 | Outpatient (CLI) | payer BC ==
[~2016-07-02] VITALS: Ht 160 cm; Wt 71.0 kg
[~2016-07-02 18:09] MED LIST changes: -CLC100 PO; -FRRS300 PO; -MTR600X PO; -MYL80 PO; -OXYC-57 PO; -PRENTAB26 PO
[2016-07-02] MEDS ORDERED: PRENTAB26 PO (18:35)
[2016-07-02 18:36] VITALS: Ht 160 cm; Wt 71.0 kg
== END 2016-07-02 19:43 | disposition home or self-care (01) ==
LOC: C.OPB 18:09 → C.LD 18:09 → C.OPB 19:43
PROVIDERS: ATTEND Obstetrics & Gynecology
DX: O48.1 Prolonged pregnancy (principal); Z3A.41 41 weeks gestation of pregnancy

== ENCOUNTER 2019-07-30 07:30 | Inpatient (IN) ==
--- NOTE | 2019-07-27 13:27 | Communication Note ---
Date of Service: July 27, 2019 Travel assessment/history reviewed - low risk at this time - will be reviewed the morning of surgery. No preop covid testing done.
--- NOTE | 2019-07-29 17:32 | History & Physical Report ---
Date of Service July 29, 2019 Assessment & Plan (1) History of delivery, antepartum: IUP at 39 weeks gestation with previous section for failure to descend now presenting for repeat section . the procedure and it's risks were reviewed in detail with the patient and all of her questions were answered satisfactorily. (2) Supervision of normal intrauterine in multigravida: History of Present Illness Primary Care Provider: NO PCP Patient is a 29 yo white female G [id number] EDC 08/06/19 who presents for repeat C- section. prior was done for failure of descent after pushing for 4 hours. no problems this except a history of medullary sponge kidneys. she did have a rash with oxycodone but can take acetaminophen without a problem. blood type O positive GBS -negative. Allergies Allergy/AdvReac Type Severity Reaction Status Date / Time pseudoephedrine Allergy Intermediate HALLUCINATI Verified 07/29/19 10:28 ONS oxycodone [From Percocet] Allergy Mild rash Verified 07/29/19 10:28 Home Medications Home Medications Medication Instructions Recorded Confirmed Type prenat.vits,gale,amv-yqvh-qdxhe 1 tab PO DAILY 01/06/19 07/29/19 History iron 159 mg PO DAILY 07/27/19 07/29/19 History Patient History Medical History (Updated 07/27/19 @ 11:10 by Dulce Maria Echavarria RN) Iron deficiency Medullary sponge kidney of both kidneys Migraine Surgical History (Updated 07/27/19 @ 11:10 by Dulce Maria Echavarria RN) H/O umbilical hernia repair History of adenoidectomy History of section X 1 History of cholecystectomy History of myringotomy [place] teeth removed Family History (Updated 07/27/19 @ 11:14 by Dulce Maria Echavarria RN) Grandmother (Maternal) Hypercholesteremia History of hysterectomy Hypertension Family history of diabetes mellitus Father Hypercholesteremia Mother History of hysterectomy Social History (Updated 12/30/18 @ 16:08 by Daya Valadez) Preferred Language: Yoruba Buildings Painter Required: No Beliefs That Will Affect Care: None marital status: marital status details: Dez Tomlin (30) [phone] Current Living Situation: Family Current Living Situation Comment: 2 dogs current occupational status: employed 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 @ [employer] Feels Safe at Home: Yes Smoking Status: Never smoker Second Hand Exposure: No ; Hx Alcohol Use: No Hx Substance Use: No Review of Systems All systems reviewed & are unremarkable except as noted in HPI & below Physical Exam Constitutional: WD/WN, vitals as above Respiratory: normal respiratory effort, lungs clear to auscultation Cardiovascular: RRR, no murmur, no edema Gastrointestinal (Abdomen): normal bowel sounds, soft, nontender, no hepatosplenomegaly Inspection/Auscultation: + abdominal surgical scar (well healed low transverse scar) Psychiatric: A+Ox3, euthymic affect Genitourinary: deferred Coding Level of Care Code None Diagnoses History of delivery, antepartum O34.219 Supervision of normal intrauterine in multigravida Z34.80
--- NOTE | 2019-07-30 08:53 | History & Physical Bridge Note ---
Date of Service July 30, 2019 History & Physical Bridge Note I have examined the patient, reviewed the History & Physical and in the interval since the performance of the History & Physical I have noted the following changes of clinical significance: no changes noted
[2019-07-30 09:15] LABS: Basophils # (auto) 0.01 K/uL (0-0.2); Basophils % (auto) 0.1 %; Eosinophils # (auto) 0.08 K/uL (0-0.5); Eosinophils % (auto) 0.8 %; Hematocrit (blood only) 34.3 % (37-47); Hemoglobin 11.5 g/dL (12.0-16.0); Immature Granulocytes # (auto) 0.15 K/uL (0.00-0.02); Immature Granulocytes % (auto) 1.6 %; Lymphocytes # (auto) 1.53 K/uL (1.2-3.4); Mean Corpuscular Hemoglobin 31.2 pg (25-34); Mean Platelet Volume 11.4 fL (7.4-10.4); Monocytes # (auto) 0.79 K/uL (0.11-0.59); Monocytes % (auto) 8.2 %; Neutrophils # (auto) 7.03 K/uL (1.4-6.5); Neutrophils % (auto) 73.3 %; Platelet Count 214 K/uL (130-400); RDW Coefficient of Variation 14.2 % (11.5-14.5); RDW Standard Deviation 47.8 fL (36.4-46.3); Red Blood Count 3.69 M/uL (4.2-5.4); White Blood Count 9.59 K/uL (4.8-10.8)
[2019-07-30 09:31] LABS: Mean Corpuscular Hgb Conc 33.5 g/dL (32-36)
[2019-07-30] MEDS ORDERED: CEFAZOLIN 2000MG 2,000 MG/15 ML SYR IV ONE (09:45)
--- NOTE | 2019-07-30 09:45 | Anesthesiology Consultation ---
Date of Service July 30, 2019 Assessment & Plan Chart Review Chart Review: Acceptable Risk for Surgery and Patient NOT seen in Pre Admission Testing Consults Requested none ASA ASA2 Proposed Anesthesia Anesthesia Type: Spinal Risk / Benefits Reviewed With: PT / POA / Parent / Guardian, Accepts Plan and Informed Consent Obtained Additional Comments: no S/sx's covid History Surgery Operation Date: 07/30/19 10:05 Proposed Procedures p Section in LD - Tigist Mckinney MD, FACOG Height/Weight Height: 5 ft 3 in Weight: 72.575 kg Allergies Allergy/AdvReac Type Severity Reaction Status Date / Time pseudoephedrine Allergy Intermediate HALLUCINATI Verified 07/29/19 10:28 ONS oxycodone [From Percocet] Allergy Mild rash Verified 07/29/19 10:28 Medications Home Medications Medication Instructions Recorded Confirmed Last Taken prenat.vits,gale,jep-chnc-zqvst 1 tab PO DAILY 01/06/19 07/30/19 2 Days Ago ~07/28/19 iron 159 mg PO DAILY 07/27/19 07/30/19 2 Days Ago ~07/28/19 NPO Date Last Intake of Fluids: 07/29/19 Time Last Intake of Fluids: 23:30 Date Last Intake of Solids: 07/29/19 Time Last Intake of Solids: 19:00 Past Medical History Medical History Iron deficiency Medullary sponge kidney of both kidneys Migraine Exercise / Class Metabolic Activity II 4-5 Yardwork/Stairs/Walk up hill Past Family History Family History Grandmother (Maternal) Hypercholesteremia History of hysterectomy Hypertension Family history of diabetes mellitus Father Hypercholesteremia Mother History of hysterectomy Past Surgical History Surgical History H/O umbilical hernia repair History of adenoidectomy History of section X 1 History of cholecystectomy History of myringotomy [place] teeth removed Past Anesthesia History No Hx of Anesthesia Complications and No Family Hx of Anesthesia Complications History of PONV No Hx of PONV and No Hx of Motion Sickness Social History Smoking Status: Never smoker Do You Dip or Chew Tobacco: No Hx Alcohol Use: No Hx Substance Use: No substance use type: does not use Physical Exam Vital Signs Last Vital Signs Temp 37.2 C 07/30/19 08:30 Pulse 102 H 07/30/19 08:29 Resp 18 07/30/19 08:30 BP 104/60 07/30/19 08:29 Constitutional + obese ENMT Mouth: no dentition abnormality Thyromental Distance: < 3.5 Finger Breadths Mallampati Class: II Neck normal visual inspection and trachea midline; neck extension not limited Respiratory normal respiratory effort Auscultation: lungs clear to auscultation bilaterally Cardiovascular Rate/Rhythm: regular rate and regular rhythm Heart Sounds: no murmur Vessels: no carotid bruit Musculoskeletal Spine: lumbar spine normal to inspection; normal cervical ROM Extremities: extremities normal to inspection Neurologic moves all extremities Motor/Sensory: no sensory deficit Psychiatric Orientation: alert and oriented x 3 Testing Laboratory Results 07/30/19 08:42 Blood Type O Positive 07/30/19 08:39 Antibody Screen NEGATIVE 07/30/19 08:39
[2019-07-30] MEDS ORDERED: CITRIC ACID/SODIUM CITRATE 15 ML UDC ONE (09:55)
[2019-07-30] MEDS ORDERED: MoRPHine SULFATE PF 1 MG/ML 10 ML AMP/VIAL ONE (10:01)
[2019-07-30] MEDS ORDERED: fentaNYL citrate 100 MCG/2 ML VIAL ONE (10:01)
[2019-07-30] MEDS ORDERED: PHENYLEPHRINE 100MCG/ML 5ML SYR ONE (10:59)
[2019-07-30] MEDS ORDERED: OXYTOCIN 10 UNITS/ML VIAL ONE ×2 (10:59→11:04)
[2019-07-30] MEDS ORDERED: DEXAMETHASONE SOD INJ 4 MG/ML VIAL ONE (11:02)
[2019-07-30] MEDS ORDERED: ONDANSETRON INJ 2 MG/ML 2 ML VIAL ONE (11:02)
[2019-07-30] MEDS ORDERED: LACTATED RINGER'S 1,000 ML IV SCH ×2 (11:17→11:30)
[2019-07-30] MEDS ORDERED: MAGNESIUM HYDROXIDE SUSP 30 ML UDC PO PRN (11:19)
[2019-07-30] MEDS ORDERED: BENZOCAINE 20% AER SPR 82.5 GM CAN EXT PRN (11:19)
[2019-07-30] MEDS ORDERED: SENNA 8.6 MG TAB PO PRN (11:19)
[2019-07-30] MEDS ORDERED: SUPERCREAM 0.870% 15 GM JAR EXT PRN (11:19)
[2019-07-30] MEDS ORDERED: HYDROCORTISONE ACETATE 25 MG SUPP PR PRN (11:19)
[2019-07-30] MEDS ORDERED: DIPHTHERIA/TETANUS/PERTUSSIS 0.5 ML SYR/VIAL IM ONE (11:19)
[2019-07-30] MEDS ORDERED: ACETAMINOPHEN 1,000 MG/100 ML VIAL IV PRN (11:23)
--- NOTE | 2019-07-30 11:30 | Post Operative Brief Note ---
PG Immediate Post Op with CF Date of Surgery July 30, 2019 Pre & Post Diagnosis Operation Date: 07/30/19 10:05 Pre-Op Diagnosis: 1. Previous Section 2. at 39 weeks Post-Op Diagnosis: Same & delivery of live female Apgars 8/9 I identified the patient and participated in the time-out.: Yes Procedure Operation Date: 07/30/19 10:05 Actual Procedures p Section in LD; Repeat Lower Uterine Transverse Section for the of a live girl infant. (Bilateral) - Tigist Mckinney MD, FACOG Surgeon Tigist Mckinney MD, FACOG Keyboard Action Assembler Dr. Geronimo Stanley Estimated Blood Loss 600 Findings Consistent with Post-Op Diagnosis Fluids 1400 mls Specimens Specimen Description: 1. Placenta: 2. Cord Blood Obtained Drains Murillo Catheter (Murillo catheter inserted without difficulty; patent and draining clear yellow urine. ) Anesthesia Type Spinal Complications none Disposition Accompanied Patient To Recovery: Yes Disposition: L&D
[2019-07-30] MEDS ORDERED: NALOXONE HCL 0.4 MG/1 ML VIAL/CARP IV PRN (11:37)
[2019-07-30] MEDS ORDERED: LACTATED RINGER'S 500 ML IV PRN (11:37)
[2019-07-30] MEDS ORDERED: NALOXONE HCL 0.08 MG in SYRINGE 1.8 ML IV PRN (11:37)
[2019-07-30] MEDS ORDERED: ONDANSETRON INJ 2 MG/ML 2 ML VIAL IV PRN (11:37)
[2019-07-30] MEDS ORDERED: NALOXONE HCL 1 MG in SODIUM CHLORIDE 0.9% 1000ML 1,000 ML IV PRN (11:37)
[2019-07-30] MEDS ORDERED: NALBUPHINE HCL INJ 10 MG/ML AMP IV PRN (11:37)
[2019-07-30] MEDS ORDERED: DiphenhydrAMINE HCL 50 MG/ML VIAL IV PRN (11:37)
[2019-07-30] MEDS ORDERED: ePHEDrine sulfate 50 MG/ML AMP IV PRN (11:37)
[2019-07-30] MEDS ORDERED: PROMETHAZINE HCL 25 MG in SODIUM CHLORIDE 0.9% 50 ML IV PRN (11:37)
[2019-07-30] MEDS ORDERED: MoRPHine SULFATE PF 1 MG/ML 10 ML AMP/VIAL INT SPINAL ONE (11:37)
[2019-07-30] MEDS ORDERED: NO NARCOTICS OR SEDATIVES SCH (11:45)
[2019-07-30] MEDS ORDERED: DC INTRASPINAL MORPHINE SCH (11:45)
[2019-07-30] MEDS ORDERED: SODIUM CHLORIDE 0.9% 1000ML 1,000 ML IV SCH (11:45)
[2019-07-30] MEDS: OXYTOCIN 20 UNITS in LACTATED RINGER'S 1,000 ML IV SCH ×2 (12:33→20:58)
--- NOTE | 2019-07-30 12:43 | Operative Report (OR) ---
DATE OF OPERATION: 07/30/2019 SURGEON: Dr. Tigist Zuluaga. IN FLIGHT REFUELING OPERATOR: Dr. Geronimo Stanley. PREOPERATIVE DIAGNOSES: Intrauterine at 39 weeks, prior section, requesting repeat section. POSTOPERATIVE DIAGNOSES: Intrauterine at 39 weeks, prior section, requesting repeat section, delivery of a viable female , 7 pounds 7 ounces, Apgars 8 and 9. PROCEDURE: Repeat low transverse section. ANESTHESIA: Subarachnoid block. BLOOD LOSS: 600 mL. HISTORY: The patient is a 29-year-old 2, para 1-0-0-1 white female who presents at 39 weeks for repeat section. Her first section was done because of arrest of descent after pushing for 4 hours. She is requesting repeat section at this time. She understands the risks of procedure and is willing to proceed. GROSS FINDINGS: The uterus is gravid and consistent with a term in size. Bilateral ovaries and fallopian tubes were grossly normal. DESCRIPTION OF PROCEDURE: After the patient received adequate subarachnoid block and after she was prepped and draped in the usual sterile fashion, a low transverse skin incision was made through her prior scar and carried to the fascia with the same scalpel. The fascial incision was then extended with Oliveira scissors. The edges were then grasped with Sherrill clamps and the underlying rectus muscle was bluntly and sharply dissected off of the overlying fascia. The rectus muscles were then divided in the midline bluntly and the peritoneum was entered in a similar fashion. The bladder was then taken down off the anterior surface of the uterus and placed behind the bladder blade. The lower uterine segment was entered with the scalpel to the level of the membranes. Membranes were ruptured for clear fluid. The incision was extended transversely. The was delivered from the vertex presentation with moderate fundal pressure. A loose nuchal cord was reduced prior to delivering the rest of the infant. After the infant was delivered, there was spontaneous crying and the infant was moving all 4 limbs. The placenta was expressed intact with a 3-vessel cord. The uterus was then exteriorized and covered with a clean lap sponge. The uterine cavity was explored and found to be free of any retained tissue, placenta or membranes. The uterus was then closed in 2 layers in a running locking imbricating fashion. Hemostasis was noted to be excellent. The posterior cul-de-sac was irrigated with normal saline. The incision was examined once more and continued to have excellent hemostasis. The uterus was placed back inside the abdominal cavity. The gutters were explored and found to be free of any fluid or clot. The incision continued to have excellent hemostasis. The rectus muscles were brought together on the midline with individual stitches of 0 Monocryl. The fascia was closed in a running fashion with 0 Vicryl. The adipose layer was then irrigated with normal saline. Skin edges were reapproximated using a subcuticular stitch of 4-0 Vicryl. Urine was clear at the end of the case. Mother and infant were doing well after delivery. I attest to the content of the Intraoperative Record and any orders documented therein. Any exception s are noted below.
[2019-07-30] MEDS: KETOROLAC 30 MG/ML VIAL IV PRN (13:05)
--- NOTE | 2019-07-30 13:24 | Anesthesiology Progress Note ---
Date of Service July 30, 2019 Anesthesia Post Procedure Vital Signs Vital Signs: Temp Pulse Resp BP Pulse Ox 07/30/19 13:19 82 95 07/30/19 13:14 76 97 07/30/19 13:08 76 113/78 97 07/30/19 13:03 80 96 07/30/19 12:59 74 94 07/30/19 12:58 72 97 07/30/19 12:53 74 96 07/30/19 12:48 75 96 07/30/19 12:43 77 97 07/30/19 12:38 76 97 07/30/19 12:36 103 H 132/104 H 07/30/19 12:33 79 97 07/30/19 12:28 79 98 07/30/19 12:23 83 98 07/30/19 12:18 84 98 07/30/19 12:15 36.5 C 76 18 104/68 07/30/19 12:13 88 99 07/30/19 12:08 78 98 07/30/19 12:05 80 16 106/59 L 07/30/19 12:03 88 95 07/30/19 11:58 88 97 07/30/19 11:55 92 H 16 116/56 L 07/30/19 11:53 93 H 97 07/30/19 11:51 85 94 07/30/19 11:48 87 98 07/30/19 11:45 18 108/70 07/30/19 11:43 90 97 07/30/19 11:38 93 H 97 07/30/19 11:35 36.5 C 94 H 18 107/63 07/30/19 10:06 109 H 118/72 07/30/19 08:30 37.2 C 18 07/30/19 08:29 102 H 104/60 Pain Intensity Lower Abdomen: Pain Intensity: 2 Transfer of Care Handoff Completed per policy Notes Mental Status: alert / awake / arousable Patient Amnestic to Procedure: Yes Nausea / Vomiting: adequately controlled Pain: adequately controlled Airway Patency, RR, SpO2: stable & adequate BP & HR: stable & adequate Hydration State: stable & adequate Neuraxial Anesthesia: was administered and sensory block is resolving Anesthetic Complications: no major complications apparent
[2019-07-30] MEDS: SIMETHICONE 80 MG CHEW PO SCH ×2 (19:11→20:58)
[2019-07-30] MEDS: DOCUSATE SODIUM 100 MG CAP PO SCH (20:58)
[2019-07-31] MEDS: KETOROLAC 30 MG/ML VIAL IV PRN (02:18)
[2019-07-31] MEDS ORDERED: KETOROLAC 30 MG/ML VIAL IV PRN (05:38)
[2019-07-31] MEDS ORDERED: MEPERIDINE HCL 50 MG/ML CARP IV PRN (05:38)
[2019-07-31] MEDS ORDERED: DiphenhydrAMINE HCL 50 MG/ML VIAL IV PRN (05:38)
[2019-07-31] MEDS ORDERED: ONDANSETRON INJ 2 MG/ML 2 ML VIAL IV PRN (05:38)
[2019-07-31] MEDS ORDERED: PROMETHAZINE HCL 25 MG in SODIUM CHLORIDE 0.9% 50 ML IV PRN (05:38)
[2019-07-31] MEDS ORDERED: CITRIC ACID/SODIUM CITRATE 15 ML UDC PO SCH (06:00)
[2019-07-31 06:23] LABS: Basophils # (auto) 0.02 K/uL (0-0.2); Basophils % (auto) 0.2 %; Eosinophils # (auto) 0.04 K/uL (0-0.5); Eosinophils % (auto) 0.3 %; Hematocrit (blood only) 32.8 % (37-47); Hemoglobin 10.9 g/dL (12.0-16.0); Immature Granulocytes % (auto) 0.8 %; Lymphocytes # (auto) 1.65 K/uL (1.2-3.4); Mean Corpuscular Hemoglobin 30.8 pg (25-34); Mean Corpuscular Hgb Conc 33.2 g/dL (32-36); Mean Corpuscular Volume 92.7 fL (80-100); Mean Platelet Volume 11.2 fL (7.4-10.4); Monocytes # (auto) 1.03 K/uL (0.11-0.59); Monocytes % (auto) 8.1 %; Neutrophils # (auto) 9.85 K/uL (1.4-6.5); Neutrophils % (auto) 77.6 %; Platelet Count 186 K/uL (130-400); RDW Standard Deviation 47.3 fL (36.4-46.3); Red Blood Count 3.54 M/uL (4.2-5.4); White Blood Count 12.69 K/uL (4.8-10.8)
--- NOTE | 2019-07-31 07:03 | Obstetrical Progress Note ---
Date of Service July 31, 2019 Assessment & Plan Admission and Anticipated Discharge Date Admission Date: July 30, 2019 29 yo s/p C/S @ 39 weeks -POD# 1 - GBS -, Blood Type O+ - Feels well today. Eating well, voiding well, ambulating well. - Pain well controlled . - Routine operative care - After discharge will have 6 week followup. Supervising Physician Co-Signing Physician Notes I have reviewed the resident's note and examined the patient myself, and agree with the note above. Subjective Laurie Tomlin is doing well this morning, walking, voiding, and drinking fluids without nausea. She describes her bleeding as okay. She states that is going, "better". Her milk hasn't come in yet but is pumping and giving this milk when she initiates . Review of Systems Review of Systems: Denies shortness of breath, difficulty breathing, chest pain, palpitations, chest pressure. Denies breast pain. Denies dysuria. Denies headache. Physical Exam Physical Exam: General: Alert, oriented. No acute distress. Cardiac: Regular rate and rhythm, no murmurs/rubs/gallops. Respiratory: Clear to auscultation anterior and posteriorly, no wheezes/rales/rhonchi. No increased work of breathing. Symmetrical chest rise. No respiratory distress. Abdomen: Soft, nontender, nondistended. Bowel sounds present. Uterus: Uterine fundus firm, palpable 2 cm below umbilicus. Lower Extremities: No lower extremity edema or swelling. No deep calf pain. Herb's negative bilaterally. surgical incision intact, clean, dry. No warmth, erythema, discharge, or dehiscence. Results & Data ([facility]) Vital Signs (Past 12 Hours) Vital Signs Temp Pulse Resp BP Pulse Ox 07/31/19 05:05 16 97 07/31/19 04:40 14 96 07/31/19 03:30 36.6 C 84 16 102/64 96 07/31/19 02:35 16 98 07/31/19 02:10 14 96 07/31/19 00:45 16 97 07/30/19 23:15 36.8 C 84 16 110/67 96 07/30/19 23:00 16 97 07/30/19 22:00 18 99 07/30/19 21:00 16 98 07/30/19 20:00 18 98 07/30/19 19:40 36.8 C 76 20 108/70 97 07/30/19 19:11 17 99 07/30/19 19:00 20 98 Resident Activity Tracking Resident Involvement: Resident Care Provided Care Provided: Adult ED
[2019-07-31] MEDS: IBUPROFEN 600 MG TAB PO PRN ×4 (08:18→23:58)
[2019-07-31] MEDS: SIMETHICONE 80 MG CHEW PO SCH ×4 (08:18→20:58)
[2019-07-31] MEDS: FERROUS SULFATE 325 MG TAB PO SCH (08:19)
[2019-07-31] MEDS: DOCUSATE SODIUM 100 MG CAP PO SCH ×2 (08:19→20:58)
[2019-07-31] MEDS: PRENATAL VITAMIN 1 TAB PO SCH (08:19)
[2019-07-31] MEDS: ACETAMINOPHEN 325 MG TAB PO PRN ×3 (10:17→20:58)
--- NOTE | 2019-07-31 10:41 | Anesthesiology Progress Note ---
Date of Service July 31, 2019 Anesthesia Post Procedure Vital Signs Vital Signs: Temp Pulse Pulse Resp BP BP Pulse Ox 07/31/19 07:30 36.6 C 90 18 98/61 L 96 07/31/19 05:05 16 97 07/31/19 04:40 14 96 07/31/19 03:30 36.6 C 84 16 102/64 96 07/31/19 02:35 16 98 07/31/19 02:10 14 96 07/31/19 00:45 16 97 07/30/19 23:15 36.8 C 84 16 110/67 96 07/30/19 23:00 16 97 07/30/19 22:00 18 99 07/30/19 21:00 16 98 07/30/19 20:00 18 98 07/30/19 19:40 36.8 C 76 20 108/70 97 07/30/19 19:11 17 99 07/30/19 19:00 20 98 07/30/19 18:00 18 98 07/30/19 17:12 17 97 07/30/19 16:00 17 99 07/30/19 15:19 16 99 07/30/19 14:30 36.6 C 82 16 122/78 99 07/30/19 14:09 85 97 07/30/19 14:08 76 117/60 07/30/19 14:05 36.6 C 18 07/30/19 14:04 74 96 07/30/19 14:01 74 94 07/30/19 13:59 83 96 07/30/19 13:54 79 96 07/30/19 13:49 80 97 07/30/19 13:44 79 96 07/30/19 13:39 76 97 07/30/19 13:37 72 116/79 07/30/19 13:35 18 07/30/19 13:34 83 97 07/30/19 13:29 76 96 07/30/19 13:24 67 96 07/30/19 13:19 82 95 07/30/19 13:14 76 97 07/30/19 13:08 76 113/78 97 07/30/19 13:05 36.5 C 16 07/30/19 13:03 80 96 07/30/19 12:59 74 94 07/30/19 12:58 72 97 07/30/19 12:53 74 96 07/30/19 12:48 75 96 07/30/19 12:43 77 97 07/30/19 12:38 76 97 07/30/19 12:36 103 H 132/104 H 07/30/19 12:35 16 07/30/19 12:33 79 97 07/30/19 12:28 79 98 07/30/19 12:23 83 98 07/30/19 12:18 84 98 07/30/19 12:15 36.5 C 76 18 104/68 07/30/19 12:13 88 99 07/30/19 12:08 78 98 07/30/19 12:05 80 16 106/59 L 07/30/19 12:03 88 95 07/30/19 11:58 88 97 07/30/19 11:55 92 H 16 116/56 L 07/30/19 11:53 93 H 97 07/30/19 11:51 85 94 07/30/19 11:48 87 98 07/30/19 11:45 18 108/70 07/30/19 11:43 90 97 07/30/19 11:38 93 H 97 07/30/19 11:35 36.5 C 94 H 18 107/63 Pain Intensity Lower Abdomen: Pain Intensity: 2 Transfer of Care Handoff Completed per policy Notes Mental Status: alert / awake / arousable and participated in evaluation Patient Amnestic to Procedure: Yes Nausea / Vomiting: adequately controlled Pain: adequately controlled Airway Patency, RR, SpO2: stable & adequate BP & HR: stable & adequate Hydration State: stable & adequate Anesthetic Complications: no major complications apparent and Pt Satisfied with anesthetic care
[2019-07-31] MEDS ORDERED: bisacodyL 5 MG TABEC PO SCH (20:00)
[2019-07-31] MEDS ORDERED: ACETAMINOPHEN W/CODEINE #3 1 TAB PO PRN (23:29)
[2019-07-31] MEDS: ACETAMINOPHEN W/CODEINE #3 1 TAB PO PRN (23:58)
[2019-08-01] MEDS: HYDROmorphone HCL 2 MG TAB PO PRN ×3 (03:33→23:49)
[2019-08-01] MEDS: IBUPROFEN 600 MG TAB PO PRN ×3 (03:33→18:49)
[2019-08-01 06:53] LABS: Hematocrit (blood only) 31.3 % (37-47); Hemoglobin 10.2 g/dL (12.0-16.0)
--- NOTE | 2019-08-01 08:34 | Obstetrical Progress Note ---
Date of Service August 01, 2019 Assessment & Plan (1) Encounter for care and examination after delivery: stable course - better pain control with Tylenol #3 then with plain tylenol or motrin alone continue current care plan Day #:: 2 Subjective Ambulation: ambulating normally Voiding: no voiding problems Passing Gas:: Yes Diet Tolerance:: regular diet Lochia:: Small Feeding Type:: breast feeding had no problems with Tylenol #3- no rashes, itching or nausea she wlso did well with po Dilaudid. Review of Systems All systems reviewed & are unremarkable except as noted in HPI & below Physical Exam Constitutional WD/WN, vitals as above Gastrointestinal (Abdomen) normal bowel sounds, soft, nontender, no hepatosplenomegaly Inspection/Auscultation: + abdominal surgical incision (intact - slight drainage from center of incision, no erthyema) Psychiatric A+Ox3, euthymic affect Genitourinary OB Exam Abdomen: + fundal height Fundus: + firm and + relation to umbilicus (1 below U) Results & Data Vital Signs (Past 12 Hours) Vital Signs Temp Pulse Resp BP Pulse Ox 08/01/19 07:22 97.9 F 94 H 18 122/79 97 08/01/19 00:00 97.7 F 89 18 135/87
[2019-08-01] MEDS: PRENATAL VITAMIN 1 TAB PO SCH (08:56)
[2019-08-01] MEDS: SIMETHICONE 80 MG CHEW PO SCH ×4 (08:56→20:28)
[2019-08-01] MEDS: DOCUSATE SODIUM 100 MG CAP PO SCH ×2 (08:57→20:28)
[2019-08-01] MEDS: FERROUS SULFATE 325 MG TAB PO SCH (08:57)
[2019-08-01] MEDS ORDERED: bisacodyL 10 MG SUPP PR PRN (11:20)
[2019-08-01] MEDS: ACETAMINOPHEN W/CODEINE #3 1 TAB PO PRN (18:48)
[2019-08-02] MEDS: IBUPROFEN 600 MG TAB PO PRN ×3 (05:49→13:19)
--- NOTE | 2019-08-02 06:17 | Obstetrical Progress Note ---
Date of Service August 02, 2019 Assessment & Plan Admission and Anticipated Discharge Date Admission Date: July 30, 2019 29 yo s/p rC/S @ 39 weeks, complicated by prior C/S Right popliteal fossa erythema, likely varicose veins. - Herb's negative, no warmth or pain - r/o thrombosis w/ duplex ultrasound - POD#3 - GBS negative, Blood Type O+ - Feels well today. Eating well, voiding well, ambulating well. - Pain well controlled. - Routine post operative care - After discharge will have [address] Mckinney. Supervising Physician Co-Signing Physician Notes Resident Physician Supervision Note: I interviewed and examined the patient. Discussed with Dr. Stanley and agree with findings and plan as documented in the note. Any exceptions or clarifications are listed here: [None] Documented By: Tigist Mckinney MD, FACOG Subjective Doing well this morning her pain is a 5/10 after recently having a Motrin. She was concerned with taking Oxycodone due to the medication passing through her breastmilk. She is but states that her milk has not come in yet. Review of Systems Review of Systems: Denies shortness of breath, difficulty breathing, chest pain, palpitations, chest pressure. Denies breast pain. Denies dysuria. Denies headache. Physical Exam Physical Exam: General: Alert, oriented. No acute distress. Cardiac: Regular rate and rhythm, no murmurs/rubs/gallops. Respiratory: Clear to auscultation anterior and posteriorly, no wheezes/rales/rhonchi. No increased work of breathing. Symmetrical chest rise. No respiratory distress. Abdomen: Soft, nontender, nondistended. Bowel sounds present. Uterus: Uterine fundus firm, palpable 2 cm below umbilicus. Lower Extremities: No lower extremity edema or swelling. No deep calf pain. Herb's negative bilaterally. 2 cm area with veins visible at the right popliteal fossa. surgical incision intact, clean, dry. No warmth, erythema, discharge, or dehiscence. Results & Data ([facility]) Vital Signs (Past 12 Hours) Vital Signs Temp Pulse Resp BP 08/01/ 00:15 36.4 C L 86 18 130/81 Resident Activity Tracking Resident Involvement: Resident Care Provided Care Provided: OB Delivery
[2019-08-02] MEDS: PRENATAL VITAMIN 1 TAB PO SCH (09:27)
[2019-08-02] MEDS: DOCUSATE SODIUM 100 MG CAP PO SCH (09:27)
[2019-08-02] MEDS: ACETAMINOPHEN W/CODEINE #3 1 TAB PO PRN ×2 (09:28→13:18)
[2019-08-02] MEDS: SIMETHICONE 80 MG CHEW PO SCH ×2 (09:28→13:18)
[2019-08-02] MEDS: FERROUS SULFATE 325 MG TAB PO SCH (09:28)
--- NOTE | 2019-08-02 10:36 | Ultrasound Report ---
US venous doppler LE RT CLINICAL HISTORY: 29 years-old Female presenting with right calf pain- section on 07/29. TECHNIQUE: Real-time grayscale and color and spectral Doppler ultrasound imaging of the veins of the right lower extremity was performed. Compression and augmentation were also utilized. COMPARISON: None. FINDINGS: RIGHT: Common femoral vein: Patent. Greater saphenous vein (superficial): Patent. Deep femoral vein: Patent. Femoral vein: Patent. Popliteal vein: Patent. Calf veins: Patent. Other: None. IMPRESSION: No evidence of deep venous thrombosis. ACT 112: Negative or not required by law. Electronically signed by: Phil Feng M.D. 08/02/2019 10:35 AM
--- NOTE | 2019-08-03 09:00 | Discharge Summary (DS) ---
PRINCIPAL DIAGNOSIS: Intrauterine at term, prior section, requesting repeat section. PRINCIPAL PROCEDURE: Repeat low transverse section. HOSPITAL COURSE: The patient is a 29-year-old 2, para 1-0-0-1 white female who presents at 39 weeks for repeat section. Her prior section had been done for arrest of descent after pushing for 4 hours. She underwent a repeat section without any complications. Her postop course was also uncomplicated. She remains afebrile throughout her hospital stay. She was eating regular diet as well by her first postop day. There were issues with pain control as SHE HAS AN ALLERGY TO OXYCODONE. She was given Tylenol with Codeine which did cause an allergic reaction and also was effective for control of her pain relief since plain Tylenol and Motrin were not sufficient. She was also able to take po Dilaudid without an allergic reaction.She did have some pain in the varicosity behind her right knee. Prior to discharge, she received a Doppler of that area which showed that there was no evidence of a DVT. Her hemoglobin on admission was 11.5, hematocrit of 34.3. First postop day hemoglobin 10.9, hematocrit 32.8. Second postop day hemoglobin 10.2, hematocrit 31.3. She was sent home in good condition with prescriptions for Motrin 600 mg p.o. q. 4-6 hours p.r.n. pain, Tylenol No. 3 1-2 tablets p.o. q. 6 hours p.r.n. pain. She is to be seen in the office in 6 weeks for followup visit. She is to call for temperature of 101 degrees or higher, heavy vaginal bleeding, burning with urination, increased redness, drainage or pain in her incision , any further calf tenderness or any other concerns. KATHRYN
== END 2019-08-02 13:40 | disposition home or self-care (01) | DRG 788 ==
LOC: 4S1 08:21 → EDSTATUS 11:25 → 4S2 14:10